=== PATIENT | male | born 1945 | race Caucasian/White ===

== ENCOUNTER 2017-10-17 21:29 | Emergency (ER) | payer MEDICARE, OTHER ==
[2017-10-17] MEDS ORDERED: ONDANSETRON HCL INJ/PF 4 MG/2 ML SDV IV ONE (21:40)
--- NOTE | 2017-10-17 22:01 | ER Document Report ---
ED Cardiac - General Chief Complaint: Chest Pain Stated Complaint: CHEST PAIN Time Seen by Provider: 10/17/17 21:42 Notes: The patient is a 71 yo male, PMHx CAD s/p 3 vessel bypass in [place], HTN, chronic back pain and sciatica, presents with 20 minutes of left-sided back pain and pressure that started after he was fertilizing his yard. He took 12 baby aspirin prior to arrival. EMS initially took an EKG, which did not show any acute ischemic changes, but a repeat EKG done just prior to arrival to the ER showed an inferior and lateral STEMI. Patient is having his chronic lower back pain, but denies any new acute back pain. He is refusing nitro or opioids because they do not work for him in the past. He denies syncope, numbness, tingling, shortness of breath, leg swelling, hemoptysis, fevers, headache, blurry vision or rash. TRAVEL OUTSIDE OF THE [place] IN LAST 30 DAYS: No - Related Data Allergies/Adverse Reactions: opiates Allergy (Uncoded 10/17/17 21:56) Past Medical History - General Information source: Patient - Social History Smoking Status: Unknown if Ever Smoked Family History: Reviewed & Not Pertinent Review of Systems - Review of Systems Notes: REVIEW OF SYSTEMS: CONSTITUTIONAL: -fevers, -chills EENT: -eye pain, -difficulty swallowing, -nasal congestion CARDIOVASCULAR: +chest pain, -syncope. RESPIRATORY: -cough, -SOB GASTROINTESTINAL: -abdominal pain, -nausea, -vomiting, -diarrhea GENITOURINARY: -dysuria, -hematuria MUSCULOSKELETAL: +chronic back pain, -neck pain SKIN: -rash or skin lesions. HEMATOLOGIC: -easy bruising or bleeding. LYMPHATIC: -swollen, enlarged glands. NEUROLOGICAL: -altered mental status or loss of consciousness, -headache, - neurologic symptoms PSYCHIATRIC: -anxiety, -depression. ALL OTHER SYSTEMS REVIEWED AND NEGATIVE. Physical Exam - Vital signs Vitals: Resp Pulse Ox 17 91 L 10/17/17 21:34 10/17/17 21:34 - Notes Notes: PHYSICAL EXAMINATION: GENERAL: Diaphoretic. In moderate distress. HEAD: Atraumatic, normocephalic. EYES: Pupils equal round and reactive to light, extraocular movements intact, sclera anicteric, conjunctiva are normal. ENT: nares patent, oropharynx clear without exudates. Moist mucous membranes. NECK: Normal range of motion, supple without lymphadenopathy LUNGS: Breath sounds clear to auscultation bilaterally and equal. No wheezes rales or rhonchi. HEART: Regular rate and rhythm. ABDOMEN: Soft, nontender, normoactive bowel sounds. No guarding, no rebound. No masses appreciated. EXTREMITIES: Strong distal pulses. Normal range of motion, no pitting or edema. No cyanosis. NEUROLOGICAL: Cranial nerves grossly intact. Normal speech, normal gait. Normal sensory and motor exams. PSYCH: Normal mood, normal affect. SKIN: Warm, Dry, normal turgor, no rashes or lesions noted. Course - Re-evaluation Re-evalutation: Patient seen immediately on arrival. He has evidence of an inferior and lateral STEMI on EKG with diaphoresis and active chest pain. Chest x-ray does not show mediastinal widening and his symptoms are atypical for aortic dissection at this time. Spoke to patient about risks and benefits of TNKase for his STEMI and he consents to receiving the treatment. He requires transfer to facility with relay mechanic and they are requesting transfer to [facility]. 10/17/17 21:44 Spoke to [facility] Transfer Center and Dr. Maurilio Navarro has accepted the patient. 10/17/17 21:[address] Lang ([facility] Endocrinology Teacher). Unable to fly patient tonight, so looking for ground crew. 10/17/17 22:15 Transportation in ED and patient chest pain has resolved. Stable for transport. - Vital Signs Vital signs: Temp Pulse Resp BP Pulse Ox 98.0 F 20 117/78 96 10/17/17 22:12 10/17/17 22:11 10/17/17 22:11 10/17/17 22:11 - Laboratory Result Diagrams: 10/17/17 21:55 10/17/17 21:55 Laboratory results interpreted by me: 10/17/17 10/17/17 10/17/17 21:55 21:55 21:55 Plt Count 130 L Carbon Dioxide 19 L BUN 24 H Glucose 214 H Creatine Kinase 222 H CK-MB (CK-2) 8.59 H - Diagnostic Test Radiology reviewed: Image reviewed, Reports reviewed Radiology results interpreted by me: CXR: NAD - EKG Interpretation by Me EKG shows normal: Sinus rhythm, [place], Intervals, QRS Complexes Additional EKG results interpreted by me: ST Elevation in II, III, aVL, V5 and V6 with ST depressions in V2-V4. Critical Care Note - Critical Care Note Total time excluding time spent on procedures (mins): 35 Discharge - Discharge Clinical Impression: STEMI (ST elevation myocardial infarction) Qualifiers: Involved coronary artery: unspecified coronary artery Qualified Code(s): I21.3 - ST elevation (STEMI) myocardial infarction of unspecified site Condition: Serious Disposition: [facility] Referrals: ARIANA SAUNDERS MD [Primary Care Provider] - Follow up as needed
[2017-10-17 22:08] LABS: HEMATOCRIT 46.1 % (37.9-51.0); HEMOGLOBIN 15.9 g/dL (13.5-17.0); MEAN CORPUSCULAR HEMOGLOBIN 32.4 pg (27.0-33.4); MEAN CORPUSCULAR HGB CONC 34.4 g/dL (32.0-36.0); MEAN CORPUSCULAR VOLUME 94 fl (80-97); PLATELET COUNT 130 10^3/uL (150-450); WHITE BLOOD COUNT 10.3 10^3/uL (4.0-10.5)
[2017-10-17 22:13] VITALS: BP 117/78
[2017-10-17 22:19] LABS: INTERNATIONAL RATION (INR) 1.04; PARTIAL THROMBOPLASTIN TIME 26.1 SEC (23.5-35.8); PROTHROMBIN TIME 14.1 SEC (11.4-15.4)
--- NOTE | 2017-10-17 22:20 | RADIOLOGY REPORT (SQ) ---
EXAM DESCRIPTION: CHEST SINGLE VIEW COMPLETED DATE/TIME: 10/17/2017 9:57 pm REASON FOR STUDY: chest pain COMPARISON: None. EXAM PARAMETERS: NUMBER OF VIEWS: One view. TECHNIQUE: Single frontal radiographic view of the chest acquired. RADIATION DOSE: NA LIMITATIONS: None. FINDINGS: LUNGS AND PLEURA: Asymmetric right-sided airspace disease, question asymmetric edema versu s pneumonia. No pleural effusions. No pneumothorax. Left lung clear. MEDIASTINUM AND HILAR STRUCTURES: No masses. Contour normal. HEART AND VASCULAR STRUCTURES: Old sternotomy for CABG. No cardiomegaly. BONES: No acute findings. HARDWARE: None in the chest. OTHER: No other significant finding. IMPRESSION: Asymmetric right-sided airspace disease, edema versus pneumonia Old sternotomy and CABG TECHNICAL DOCUMENTATION: JOB ID: [id number] [employer]- All Rights Reserved Reading location - IP/workstation name: [email or web address]
[2017-10-17 22:35] LABS: ANION GAP 16 (5-19); BLOOD UREA NITROGEN 24 mg/dL (7-20); CALCIUM 9.5 mg/dL (8.4-10.2); CARBON DIOXIDE 19 mmol/L (22-30); CHLORIDE 104 mmol/L (98-107); CREATINE KINASE 222 U/L (55-170); GLUCOSE 214 mg/dL (75-110); POTASSIUM 4.1 mmol/L (3.6-5.0)
[2017-10-17 22:47] LABS: CREATINE KINASE MB 8.59 ng/mL (<4.55)
[2017-10-17 22:52] LABS: TROPONIN I 0.126 ng/mL
--- NOTE | 2017-10-18 08:15 | EKG REPORT ---
SEVERITY:- ABNORMAL ECG - SINUS RHYTHM NONSPECIFIC INTRAVENTRICULAR CONDUCTION DELAY INFERIOR INJURY, PROBABLE EARLY ACUTE INFARCT ABNRM R PROG, CONSIDER ASMI OR LEAD PLACEMENT LATERAL WALL ALSO INVOLVED : Confirmed by: Franklin Brunner MD 18-Oct-2017 08:14:56
--- NOTE | 2017-10-18 08:17 | EKG REPORT ---
SEVERITY:- ABNORMAL ECG - SINUS RHYTHM RIGHT AXIS DEVIATION ABNRM R PROG, CONSIDER ASMI OR LEAD PLACEMENT BORDERLINE ST DEPRESSION, ANTEROLATERAL LEADS ST ELEVATION, INFERIOR LEADS , POSSIBLE ACUTE INFERIOR NV : Confirmed by: Franklin Brunner MD 18-Oct-2017 08:17:04
== END 2017-10-17 22:25 | disposition short-term general hospital (02) ==
LOC: ER 21:29
DX: I21.3 ST elevation (STEMI) myocardial infarction of unspecified site (principal); R07.9 Chest pain, unspecified; G89.29 Other chronic pain; M54.9 Dorsalgia, unspecified; I10 Essential (primary) hypertension; Z95.1 Presence of aortocoronary bypass graft; Z88.6 Allergy status to analgesic agent
CPT/HCPCS: 93005; 99291; 96374; 36415; 82553; 82550; 85027; 85610; 85730; 80048; 84484; 71045; 93010; J2405